=== PATIENT | female | born 1965 | race Caucasian/White ===

== ENCOUNTER 2018-07-26 15:44 | Emergency (ER) | payer OTHER, SELFPAY ==
[2018-07-26 15:49] VITALS: BP 157/90; PULSE 79; RESP 20; TEMP 36.2; O2SAT 96; BMI 29.6
--- NOTE | 2018-07-26 15:56 | DI.RAD.S_ITS ---
PROCEDURE: XR CHEST 1V INDICATIONS: chest pain TECHNIQUE: One view of the chest was acquired. COMPARISON: [facility], , CHEST 2 VIEW, 05/14/2012, 6:52. FINDINGS: Surgical changes and devices: None. Lungs and pleura: No pleural effusions or pneumothorax. Lungs are clear. Mediastinum: Mediastinal contours appear normal. Heart size is normal. Bones and chest wall: No suspicious bony lesions. Overlying soft tissues appear unremarkable. IMPRESSION: No acute pulmonary process. Dictated by: Alia Basurto M.D. on 07/26/2018 at 16:23 Approved by: Alia Basurto M.D. on 07/26/2018 at 16:23
[2018-07-26] MEDS: ASPIRIN 81 MG TAB 324 MG PO (15:58)
[2018-07-26 16:08] LABS: Add Manual Diff / Slide Review NO; Basophils Percent Auto 1.2 % (0-2); Eosinophils Percent Auto 1.4 % (2-4); Hematocrit 38.5 % (36-46); Hemoglobin 13.3 g/dL (12.0-16.0); Lymphocytes Percent Auto 31.7 % (25-40); Mean Corpuscular HGB Conc 34.5 % (30-36); Mean Corpuscular Volume 86.9 fL (80-100); Neutrophils Absolute Auto 3800 /uL (3000-5900); Neutrophils Percent Auto 58.7 % (50-75); Platelet Count 338 X10^3/uL (150-400); Red Blood Cell Count 4.43 X10^6/uL (4.0-5.2); White Blood Cell Count 6.6 X10^3/uL (4.5-11.0)
[2018-07-26 16:18] LABS: Prothrombin Time 10.4 SECONDS (10.1-12.7)
[2018-07-26 16:20] LABS: PTT Partial Thromboplastin Tim 30 SECONDS (26.4-36.2)
[2018-07-26 16:23] LABS: Alanine Aminotransferase 25 IU/L (9-52); Albumin 4.7 g/dL (3.5-5.0); Albumin Globulin Ratio 1.6 (1.0-2.8); Alkaline Phosphatase 79 U/L (38-126); Aspartate Aminotransferase 27 IU/L (14-36); Bilirubin Total 0.6 mg/dL (0.2-1.3); Blood Urea Nitrogen 18 mg/dL (7-17); Calcium 9.6 mg/dL (8.4-10.2); Carbon Dioxide 29 mmol/L (22-32); Chloride 104 mmol/L (98-107); Creatine Kinase 74 U/L (30-135); Estimated Glomerular Filt Rate 57.8 mL/min (>60); Globulin 2.9 g/dL (1.7-4.1); Glucose 105 mg/dL (70-100); HEMOLYSIS < 15 (0-50); Lipase 133 U/L (23-300); Potassium 3.8 mmol/L (3.4-5.1); Sodium 144 mmol/L (137-145); Total Protein 7.6 g/dL (6.3-8.2)
[2018-07-26 16:35] LABS: Troponin I < 0.012 ng/mL (0.01-0.034)
[2018-07-26 18:30] VITALS: BP 143/86; PULSE 73; RESP 18; O2SAT 98
--- NOTE | 2018-07-26 18:53 | ED.CHESTPAIN ---
HPI - Chest Pain General Chief Complaint: Chest Pain Stated Complaint: CHEST PAIN Time Seen by Provider: 07/26/18 18:53 Source: patient and family Mode of arrival: ambulatory Limitations: no limitations History of Present Illness HPI narrative: 52-year-old female, nonsmoker, otherwise healthy presents with a chief complaint of sharp and stabbing mid chest pain with radiation to her right jaw while at rest at 2:30 p.m. today while sitting in a chair. She states the intense pain did last all that long and was certainly long gone prior to her arrival. She denies any provocation, palliation or radiation of this pain. She states that she is very active regularly and has recently done significant work in her garden, moving so ill and other large heavy objects. She denies any history of blood clots, recent surgeries or history of cancer but has relatively frequent long-distance travel, most recently in April. complaint: chest pain Onset (ago): hour(s) Duration: now resolved Onset: during rest Pain location: substernal Severity: moderate Quality: sharp Pain radiation: RUE and jaw/teeth Relieving factors: nothing Exacerbating factors: nothing Context: recent travel Treatments prior to arrival chest pain: none Related Data On Oral Contraceptives: No Home Medications Medication Instructions Recorded Confirmed finasteride 5 mg PO DAILY 07/26/18 meloxicam 15 mg PO DAILY 07/26/18 07/26/18 Allergies Allergy/AdvReac Type Severity Reaction Status Date / Time morphine Allergy Intermediate ITCHY, Verified 07/26/18 15:54 HIVES Review of Systems Review of Systems All systems reviewed & are unremarkable except as noted in HPI and below Constitutional Denies chills, Denies fever(s), Denies lethargy and Denies weakness Eyes Denies change in vision, Denies eye discharge, Denies irritation and Denies loss of vision ENT Ears, Nose, Mouth, and Throat: Denies change in voice, Denies neck pain and Denies sore throat Cardiovascular Reports chest pain, Denies irregular heart rhythm, Denies lightheadedness, Denies palpitations, Denies dyspnea, Denies dyspnea on exertion and Denies orthopnea Respiratory Denies cough, Denies dyspnea, Denies dyspnea on exertion and Denies wheezing Gastrointestinal Gastrointestinal: Denies abdominal pain, Denies change in bowel habits, Denies diarrhea, Denies nausea and Denies vomiting Genitourinary Denies hematuria, Denies flank pain, Denies urinary incontinence and Denies urinary urgency Musculoskeletal Denies neck pain Integumentary/Breasts Denies pruritus, Denies erythema, Denies rash and Denies wounds Neurologic Denies confusion, Denies loss of vision and Denies weakness Psychiatric Denies anxiety, Denies confusion, Denies depression, Denies homicidal ideation and Denies suicidal ideation Endocrine Denies palpitations Hematologic/Lymphatic Denies easy bruising Allergic/Immunologic Denies wheezing [facility] Social History Smoking Status: Never smoker Exam Narrative Exam Narrative: 52-year-old female resting comfortably, in no obvious or significant distress. Friend at the bedside Initial Vital Signs Initial Vital Signs: Vital Signs Temperature 97.2 F L 07/26/18 15:49 Pulse Rate 79 07/26/18 15:49 Respiratory Rate 20 07/26/18 15:49 Blood Pressure 157/90 H 07/26/18 15:49 Pulse Oximetry 96 07/26/18 15:49 Const General: cooperative and well developed Nutritional Appearance: well nourished Orientation: alert, awake, oriented x3 and not confused HENNH Head: normocephalic and atraumatic Ears: external ears normal and TM's normal bilaterally Nose: external nose normal and No nasal discharge Face and sinus: sinuses nontender, face symmetric, no sinus tenderness and No dry mucous membranes Mouth: oral mucosae normal and moist mucous membranes Teeth and gingiva: dentition normal Throat: tonsils normal and uvula midline Eyes General: appearance normal, both eyes and all related structures Eyelids: eyelids normal Conjunctivae: conjunctivae normal Sclera: sclerae normal Pupils: PERRL EOM: EOM intact bilaterally Neck Neck: normal visual inspection, trachea midline, No lymphadenopathy, No midline deformity and No JVD Lymphatic: No lymphedema Chest Chest: normal inspection of the chest Resp Effort & Inspection: normal respiratory effort, able to speak in complete sentences, no respiratory distress and no use of accessory muscles Auscultation: clear to auscultation bilaterally, no rales, no rhonchi and no wheezes Cardio Rate: regular rate Rhythm: regular rhythm Heart Sounds: no click, no gallops, no murmurs and no rubs Pulses: normal peripheral pulses GI Inspection: non-distended Palpation: soft, no hepatosplenomegaly, No guarding, No pulsatile mass and No tender Auscultation: normal bowel sounds Back/Spine/Pelvis Back: No CVA tenderness Cervical Spine: cervical ROM normal and No pain with cervical ROM Thoracic/Lumbar Spine: thoracic and lumbar spine normal to inspection Skin General: no rashes or lesions noted, No jaundice and No petechiae Neuro General: alert, oriented x3, gait normal and no focal motor deficits Speech: speech normal Extrem General: full ROM, no clubbing, cyanosis or edema, no pedal edema and no calf tenderness Psych Appearance: well kempt Mental Status: mental status grossly normal Attitude: cooperative Thought Content: normal and suicidality Judgment: judgment good Scores HEART Score Heart Score history: Slightly Suspicious Heart Score EKG: Normal Heart Score Age: 45-64 years old Heart Score risk factors: No known risk factors Heart Score troponin: < or = to normal limit Heart Score Total: 1 Course Orders Ordered: ED Orders 07/26/18 15:55 Complete Blood Count AUTO DIFF Stat Comprehensive Metabolic Panel Stat Lipase Stat Partial Thromboplastin Time Stat Prothrombin Time INR Stat Troponin & CK Cardiac Panel Stat 07/26/18 15:56 XR chest 1V Stat EKG-12 Lead Stat 07/26/18 18:30 Troponin I Stat 07/26/18 19:14 CT angio chest PE protocol Stat Discontinued Medications Aspirin (Aspirin Chew) 324 mg PO NOW ONE Stop: 07/26/18 15:58 Last Admin: 07/26/18 15:58 Dose: 324 mg Vital Signs - 8 hr 07/26/18 15:49 07/26/18 18:30 07/26/18 19:00 Temperature 97.2 F L Pulse Rate 79 73 103 H Respiratory Rate 20 18 Blood Pressure 157/90 H Blood Pressure [Left Arm] 143/86 H 171/81 H Pulse Oximetry 96 98 99 07/26/18 21:55 Temperature 98.0 F Pulse Rate 66 Respiratory Rate 18 Blood Pressure 130/76 Blood Pressure [Left Arm] Pulse Oximetry 100 MDM - Chest Pain Differential Diagnosis Likely pneumothorax, stable angina, unstable angina pectoris, atypical chest pain, st elevation myocardial infarction, costochondritis, chest pain and biliary colic Medical Records Data Attestation: I reviewed the patient's medical records. Lab Data Attestation: I reviewed the patient's lab results. Result diagrams: 07/26/18 15:55 07/26/18 15:55 Lab Results 07/26/18 07/26/18 07/26/18 Range/Units 15:55 15:55 15:55 WBC 6.6 (4.5-11.0) X10^3/uL RBC 4.43 (4.0-5.2) X10^6/uL Hgb 13.3 (12.0-16.0) g/dL Hct 38.5 (36-46) % MCV 86.9 (80-100) fL MCH 30.0 (26-34) PG MCHC 34.5 (30-36) % RDW 13.0 (11.6-14.8) % Plt Count 338 (150-400) X10^3/uL Neut % (Auto) 58.7 (50-75) % Lymph % (Auto) 31.7 (25-40) % [place] % (Auto) 7.0 (3-14) % Eos % (Auto) 1.4 L (2-4) % Baso % (Auto) 1.2 (0-2) % Neut # (Auto) 3800 (0712-1635) /uL PT 10.4 (10.1-12.7) SECONDS INR 1.0 (0.9-1.3) APTT 30 (26.4-36.2) SECONDS Sodium 144 (137-145) mmol/L Potassium 3.8 (3.4-5.1) mmol/L Chloride 104 (98-107) mmol/L Carbon Dioxide 29 (22-32) mmol/L BUN 18 H (7-17) mg/dL Creatinine 1.00 (0.52-1.04) mg/dL Estimated GFR 57.8 L (>60) mL/min BUN/Creatinine Ratio 18.0 (6-22) Glucose 105 H (70-100) mg/dL Calcium 9.6 (8.4-10.2) mg/dL Total Bilirubin 0.6 (0.2-1.3) mg/dL AST 27 (14-36) IU/L ALT 25 (9-52) IU/L Alkaline Phosphatase 79 (38-126) U/L Total Creatine Kinase 74 (30-135) U/L CK-MB (CK-2) TNP CK-MB (CK-2) Rel Index TNP Troponin I < 0.012 (0.01-0.034) ng/mL Total Protein 7.6 (6.3-8.2) g/dL Albumin 4.7 (3.5-5.0) g/dL Globulin 2.9 (1.7-4.1) g/dL Albumin/Globulin Ratio 1.6 (1.0-2.8) Lipase 133 (23-300) U/L 07/26/18 Range/Units 18:30 WBC (4.5-11.0) X10^3/uL RBC (4.0-5.2) X10^6/uL Hgb (12.0-16.0) g/dL Hct (36-46) % MCV (80-100) fL MCH (26-34) PG MCHC (30-36) % RDW (11.6-14.8) % Plt Count (150-400) X10^3/uL Neut % (Auto) (50-75) % Lymph % (Auto) (25-40) % [place] % (Auto) (3-14) % Eos % (Auto) (2-4) % Baso % (Auto) (0-2) % Neut # (Auto) (9527-3424) /uL PT (10.1-12.7) SECONDS INR (0.9-1.3) APTT (26.4-36.2) SECONDS Sodium (137-145) mmol/L Potassium (3.4-5.1) mmol/L Chloride (98-107) mmol/L Carbon Dioxide (22-32) mmol/L BUN (7-17) mg/dL Creatinine (0.52-1.04) mg/dL Estimated GFR (>60) mL/min BUN/Creatinine Ratio (6-22) Glucose (70-100) mg/dL Calcium (8.4-10.2) mg/dL Total Bilirubin (0.2-1.3) mg/dL AST (14-36) IU/L ALT (9-52) IU/L Alkaline Phosphatase (38-126) U/L Total Creatine Kinase (30-135) U/L CK-MB (CK-2) CK-MB (CK-2) Rel Index Troponin I < 0.012 (0.01-0.034) ng/mL Total Protein (6.3-8.2) g/dL Albumin (3.5-5.0) g/dL Globulin (1.7-4.1) g/dL Albumin/Globulin Ratio (1.0-2.8) Lipase (23-300) U/L Imaging Data CT scan - chest: Radiologist's impression: atient: Shazia Vides TMR#: [id number] : 1965Acct:[id number] Age/Sex: 52 / FDate of Service: 07/26/18 Loc: ED Accession Number: [id number] Procedure: CT angio chest PE protocol Ordering Provider: Roque Parks D.O. PROCEDURE: CT ANGIO CHEST PE PROTOCOL INDICATIONS: Chest pain, radiation to neck and back, travel to [place] TECHNIQUE: After the administration of intravenous contrast, 2 mm thick sections acquired from the pulmonary apices to the posterior costophrenic angles. 3-dimensional maximum intensity projection (MIP) coronal and sagittal reformats were then acquired through the thorax. For radiation dose reduction, the following was used: automated exposure control, adjustment of mA and/or kV according to patient size. COMPARISON: [facility], CT, KIDNEY/ URETER/BLADDER, 03/21/2015, 3:17. FINDINGS: Image quality: Excellent. Pulmonary arteries: Pulmonary arteries are normal in size, and demonstrate no intraluminal filling defects to suggest central pulmonary embolism. Lungs and pleura: There is right dependent and lingular atelectasis. No pleural effusions or pneumothorax. Central and peripheral airways are patent. Mediastinum: Heart size is normal, without pericardial effusion. No mediastinal or hilar adenopathy. Thoracic aorta is normal in caliber and enhancement. There is a small hiatal hernia. Bones and chest wall: No suspicious bony lesions. Mild multilevel degenerative changes of the spine. Ribs and thoracic spine appear intact throughout. Thyroid gland is unremarkable. No axillary or supraclavicular adenopathy. Abdomen: Visualized upper abdominal solid organs appear normal in the early arterial phase of enhancement. IMPRESSION: No central pulmonary emboli. Dictated by: Steve Celeste M.D. on 07/26/2018 at 20:50 Approved by: Steve Celeste M.D. on 07/26/2018 at 21:01 ECG Data Attestation: I personally reviewed and interpreted this ECG as follows: Prior ECG tracings: not available for review Interpretation: normal sinus rhythm with no ischemic changes ST segment or T-wave changes. MDM Narrative Medical decision making narrative: Low risk patient presents with a heart score of 1 and pain at resolved. She had multiple troponins by 3 hr, the 2nd being 6 hr after onset of symptoms which were unremarkable. CT of the chest ordered to rule out pulmonary embolism given long distance travel and no PE noted. Patient can safely be discharged for outpatient follow up. Discharge Plan Departure Patient Disposition: Home Clinical Impression: Atypical chest pain Discharge Date/Time: 07/26/18 21:56 Interventions: ED Discharge Assessment Last Done: 07/26/18 21:55 Instructions: DI for Atypical Chest Pain Activity Restrictions/Additional Instructions: *You have been diagnosed with [ atypical chest pain ] *What to do: * continued to take medications as directed *Follow up with your primary care provider in 2-3 days, call for an appointment. Let them know you were seen in the Emergency Department and that we ask that you be seen in follow up *Return to ER if you should have any new, worsening or concerning symptoms Prescriptions: No Action meloxicam 15 mg tablet 15 mg PO DAILY RF: 0 finasteride 5 mg tablet 5 mg PO DAILY RF: 0 Referrals: Dayton Collado MD [Primary Care Provider] -
[2018-07-26 18:55] LABS: Troponin I < 0.012 ng/mL (0.01-0.034)
[2018-07-26 19:00] VITALS: BP 171/81; PULSE 103; O2SAT 99
--- NOTE | 2018-07-26 19:14 | DI.CT.S_ITS ---
PROCEDURE: CT ANGIO CHEST PE PROTOCOL INDICATIONS: Chest pain, radiation to neck and back, travel to [place] TECHNIQUE: After the administration of intravenous contrast, 2 mm thick sections acquired from the pulmonary apices to the posterior costophrenic angles. 3-dimensional maximum intensity projection (MIP) coronal and sagittal reformats were then acquired through the thorax. For radiation dose reduction, the following was used: automated exposure control, adjustment of mA and/or kV according to patient size. COMPARISON: [facility], CT, KIDNEY/ URETER/BLADDER, 03/21/2015, 3:17. FINDINGS: Image quality: Excellent. Pulmonary arteries: Pulmonary arteries are normal in size, and demonstrate no intraluminal filling defects to suggest central pulmonary embolism. Lungs and pleura: There is right dependent and lingular atelectasis. No pleural effusions or pneumothorax. Central and peripheral airways are patent. Mediastinum: Heart size is normal, without pericardial effusion. No mediastinal or hilar adenopathy. Thoracic aorta is normal in caliber and enhancement. There is a small hiatal hernia. Bones and chest wall: No suspicious bony lesions. Mild multilevel degenerative changes of the spine. Ribs and thoracic spine appear intact throughout. Thyroid gland is unremarkable. No axillary or supraclavicular adenopathy. Abdomen: Visualized upper abdominal solid organs appear normal in the early arterial phase of enhancement. IMPRESSION: No central pulmonary emboli. Dictated by: Steve Celeste M.D. on 07/26/2018 at 20:50 Approved by: Steve Celeste M.D. on 07/26/2018 at 21:01
[2018-07-26 21:55] VITALS: BP 130/76; PULSE 66; RESP 18; TEMP 36.7; O2SAT 100
== END 2018-07-26 21:56 | disposition home or self-care (01) ==
PROVIDERS: Emergency Medicine; Emergency Provider Emergency Medicine; Family Provider Family Medicine; PCP Family Medicine
DX: R07.89 Other chest pain (principal)
CPT/HCPCS: 36415; 36591; 71045; 71275; 80053; 82550; 83690; 84484; 85025; 85610; 85730; 93005; 99283; 99285; Q9967

== ENCOUNTER → 2018-10-18 11:18 | Outpatient (CLI) | payer OTHER, SELFPAY ==
--- NOTE | 2018-10-18 | DI.MG.S_ITS ---
BILATERAL DIGITAL SCREENING MAMMOGRAM 3D/2D WITH CAD: 10/18/2018 CLINICAL: Routine screening. Comparison is made to exams dated: 11/16/2014 mammogram, 06/28/2010 mammogram, and 08/12/2004 mammogram - [facility]. The tissue of both breasts is heterogeneously dense. This may lower the sensitivity of mammography. Current study was also evaluated with a Computer Aided Detection (CAD) system. No significant masses, calcifications, or other findings are seen in either breast. There has been no significant interval change. IMPRESSION: NEGATIVE There is no mammographic evidence of malignancy. A 1 year screening mammogram is recommended. This exam was interpreted at Station ID: [id number]. NOTE: For mammograms, a report in lay terms will be sent to the patient. Approximately 15% of breast malignancies will not be visualized mammographically. In the management of a palpable breast mass, a negative mammogram must not discourage biopsy of a clinically suspicious lesion. Electronically Signed By: Tiffanie valentin/janes:10/18/2018 13:04:34 letter sent: Normal Exam ACR BI-RADS Category 1: Negative 3341F
== END ==
PROVIDERS: Family Provider Family Medicine; PCP Family Medicine; Visit Provider Family Medicine
DX: Z12.31 Encounter for screening mammogram for malignant neoplasm of breast (principal)
CPT/HCPCS: 77063; 77067

== ENCOUNTER 2020-07-26 18:47 | Emergency (ER) | payer OTHER, SELFPAY ==
[2020-07-26 19:37] VITALS: BP 131/72; PULSE 85; RESP 16; TEMP 36.2; O2SAT 96; BMI 29.6
[2020-07-26 19:56] LABS: Bacteria Urine None Seen
--- NOTE | 2020-07-26 20:13 | ED_ITS ---
HPI - General Adult General Chief complaint: Urogenital-Female Stated complaint: Kidney stones or Kidney Somethin' Time Seen by Provider: 07/26/20 18:52 Source: patient Mode of arrival: Wheelchair Limitations: no limitations History of Present Illness HPI narrative: 54-year-old here for evaluation of right-sided flank pain and concern for potential kidney stone or kidney infection. States she has had kidney stones in the past but it was many years ago. Started having right-sided discomfort which felt very similar to a prior stone. She is also having some urinary dysuria and frequency and was concerned for infection. No fevers. Related Data Home Medications Medication Instructions Recorded Confirmed finasteride 5 mg PO DAILY 07/26/18 meloxicam 15 mg PO DAILY 07/26/18 07/26/18 Allergies Allergy/AdvReac Type Severity Reaction Status Date / Time morphine Allergy Intermediate ITCHY, Verified 07/26/18 15:54 HIVES Review of Systems Constitutional Constitutional: Denies fever(s) Cardiovascular Cardiovascular: Denies chest pain and Denies dyspnea Respiratory Respiratory: Denies dyspnea Gastrointestinal Gastrointestinal: Denies change in bowel habits, Denies nausea and Denies vomiting Genitourinary Genitourinary: Reports dysuria and Reports urinary urgency Genitourinary: Reports dysuria and Reports urinary urgency Musculoskeletal Musculoskeletal: Denies myalgias Integumentary/Breasts Skin/Breast: Denies rash Neurologic Neurologic: Denies behavioral changes Psychiatric Psychiatric: Denies behavioral changes Hematologic/Lymphatic Hematologic/Lymphatic: Denies easy bleeding and Denies easy bruising Allergic/Immunologic Allergic/Immunologic: Denies urticaria Patient History Medical History Kidney stones (Acute) Social History Smoking Status: Never smoker Smoking Status: Never smoker alcohol intake frequency: a few times a week Substance Use Type: does not use Exam Initial Vital Signs Initial Vital Signs: Vital Signs Temperature 97.2 F L 07/26/20 19:37 Pulse Rate 85 07/26/20 19:37 Respiratory Rate 16 07/26/20 19:37 Blood Pressure 131/72 07/26/20 19:37 Pulse Oximetry 96 07/26/20 19:37 Const General: cooperative and comfortable Limitations: mental status not altered HENMT Head: normal to inspection and normocephalic Resp Effort & Inspection: normal respiratory effort Cardio Rate: regular rate GI Inspection: non-distended Palpation: No tender Back/Spine/Pelvis Back: No CVA tenderness Skin Lesions: no lesions Rashes: no rashes Neuro General: patient alert and patient awake Cognition: normal cognition Speech: speech normal Extrem General: normal to inspection and capillary refill normal Psych Appearance: grossly normal and well kempt Course Orders Ordered: ED Orders 07/26/20 19:40 Urine Microscopic Stat 07/26/20 20:10 Basic Metabolic Panel Stat 07/26/20 21:13 Complete Blood Count AUTO DIFF Stat Discontinued Medications Ketorolac Tromethamine (Toradol) 30 mg IV NOW ONE Stop: 07/26/20 21:26 Last Admin: 07/26/20 21:32 Dose: 30 mg Documented by: XIMENA Vital Signs Vital signs: Vital Signs - 8 hr 07/26/20 19:37 07/26/20 20:50 07/26/20 21:00 Temperature 97.2 F L Pulse Rate 85 84 80 Respiratory Rate 16 Blood Pressure 131/72 136/67 132/66 Pulse Oximetry 96 94 100 07/26/20 21:30 07/26/20 21:55 Temperature Pulse Rate 83 85 Respiratory Rate 12 Blood Pressure 135/69 135/69 Pulse Oximetry 99 97 Medical Decision Making Lab Data Lab results reviewed: Yes I reviewed the patient's lab results. Result diagrams: 07/26/20 21:13 07/26/20 20:10 Labs: Lab Results 07/26/20 07/26/20 07/26/20 Range/Units 19:40 20:10 21:13 WBC 11.5 H (4.5-11.0) X10^3/uL RBC 4.55 (4.0-5.2) X10^6/uL Hgb 13.5 (12.0-16.0) g/dL Hct 40.6 (36-46) % MCV 89.2 (80-100) fL MCH 29.6 (26-34) PG MCHC 33.2 (30-36) % RDW 12.4 (11.6-14.8) % Plt Count 328 (150-400) X10^3/uL Neut % (Auto) 82.1 H (50-75) % Lymph % (Auto) 11.5 L (25-40) % [place] % (Auto) 5.3 (3-14) % Eos % (Auto) 0.4 L (2-4) % Baso % (Auto) 0.7 (0-2) % Neut # (Auto) 9400 H (3303-9119) /uL Lymph # (Auto) 1300 (8594-4801) /uL [place] # (Auto) 600 (0-900) /uL Eos # (Auto) 100 (0-450) /uL Baso # (Auto) 100 (0-100) /uL Sodium 142 (137-145) mmol/L Potassium 3.6 (3.4-5.1) mmol/L Chloride 103 (98-107) mmol/L Carbon Dioxide 31 (22-32) mmol/L BUN 12 (7-17) mg/dL Creatinine 0.82 (0.52-1.04) mg/dL Estimated GFR > 60.0 (>60) mL/min BUN/Creatinine Ratio 14.6 (6-22) Glucose 115 H (70-100) mg/dL Calcium 9.7 (8.4-10.2) mg/dL Urine RBC 1-5/hpf (0-5/HPF) Urine WBC 0-1/hpf (0-5/HPF) Ur Squamous Epith Cells 0-1 /hpf (0-5/HPF) Amorphous Sediment 2+ Urine Bacteria None seen (None) Ur Culture Indicated? Cult not indicated Urine Dip Bedside Urine Glucose Negative Bedside Urine Bilirubin - Negative Bedside Urine Ketone - Negative Urine Specific [place] 1.010 Bedside Urine Occult Blood ++ Bedside Urine pH 6.5 Bedside Urine Protein - Negative Bedside Urine Urobilinogen - Negative Bedside Urine Nitrite - Negative Bedside Urine Leukocytes - Negative Esterase Point of care testing: Urine Dip Bedside Urine Glucose Negative Bedside Urine Bilirubin - Negative Bedside Urine Ketone - Negative Urine Specific [place] 1.010 Bedside Urine Occult Blood ++ Bedside Urine pH 6.5 Bedside Urine Protein - Negative Bedside Urine Urobilinogen - Negative Bedside Urine Nitrite - Negative Bedside Urine Leukocytes - Negative Esterase MDM Narrative Medical decision making narrative: Kidney functions unremarkable, urinalysis has blood but no other signs of infection. Patient actually states that her discomfort that she had earlier has greatly improved. She is convinced that the right-sided discomfort that brought her to the emergency department was a kidney stone because it felt like her prior episodes of this. She has passed all of her prior kidney stones on her own. I feel that we can hold on a CT scan for now. Patient stated that taking opioid pain medication causes her severe constipation so she would like to avoid all of these medications if possible. She was given Toradol. She is going to take ibuprofen at home if needed. She was given return precautions and follow-up instructions. She expressed understanding and agreement. Discharge Plan Departure Patient Disposition: Home Clinical Impression: Acute right flank pain, Renal colic on right side Discharge Date/Time: 07/26/20 21:58 Instructions: Kidney Stones -- Adult Activity Restrictions/Additional Instructions: You can take 2 regular strength Tylenol/acetaminophen every 4 hours or 600 mg of Motrin/ibuprofen every 8 hours as needed for discomfort. Contact your primary provider for follow-up. Return to the emergency department for any fevers, inability to urinate, symptoms are not controlled or any other new or worsening symptoms. Prescriptions: No Action meloxicam 15 mg tablet 15 mg PO DAILY RF: 0 finasteride 5 mg tablet 5 mg PO DAILY RF: 0 Referrals: Dayton Collado MD [Primary Care Provider] -
[2020-07-26 20:28] LABS: Amorphous Sediment Urine 2+; Culture Indicated Urine Cult Not Indicated; RBC Urine 1-5/HPF (0-5/HPF); Squamous Epithelial Cell Urine 0-1 /HPF (0-5/HPF); WBC Urine 0-1/HPF (0-5/HPF)
[2020-07-26 20:34] LABS: BUN Creatinine Ratio 14.6 (6-22); Blood Urea Nitrogen 12 mg/dL (7-17); Calcium 9.7 mg/dL (8.4-10.2); Carbon Dioxide 31 mmol/L (22-32); Chloride 103 mmol/L (98-107); Estimated Glomerular Filt Rate > 60.0 mL/min (>60); Glucose 115 mg/dL (70-100); HEMOLYSIS < 15 (0-50); Potassium 3.6 mmol/L (3.4-5.1); Sodium 142 mmol/L (137-145)
[2020-07-26 20:50] VITALS: BP 136/67; PULSE 84; O2SAT 94
[2020-07-26 21:00] VITALS: BP 132/66; PULSE 80; O2SAT 100
[2020-07-26 21:20] LABS: Add Manual Diff / Slide Review NO; Basophils Absolute Auto 100 /uL (0-100); Basophils Percent Auto 0.7 % (0-2); Eosinophils Absolute Auto 100 /uL (0-450); Eosinophils Percent Auto 0.4 % (2-4); Hematocrit 40.6 % (36-46); Hemoglobin 13.5 g/dL (12.0-16.0); Lymphocytes Absolute Auto 1300 /uL (1100-4500); Lymphocytes Percent Auto 11.5 % (25-40); Mean Corpuscular HGB Conc 33.2 % (30-36); Mean Corpuscular Hemoglobin 29.6 PG (26-34); Mean Corpuscular Volume 89.2 fL (80-100); Monocytes Absolute Auto 600 /uL (0-900); Monocytes Percent Auto 5.3 % (3-14); Neutrophils Absolute Auto 9400 /uL (1500-7000); Neutrophils Percent Auto 82.1 % (50-75); Platelet Count 328 X10^3/uL (150-400); Red Blood Cell Count 4.55 X10^6/uL (4.0-5.2); Red Cell Distribution Width 12.4 % (11.6-14.8); White Blood Cell Count 11.5 X10^3/uL (4.5-11.0)
[2020-07-26 21:30] VITALS: BP 135/69; PULSE 83; O2SAT 99
[2020-07-26] MEDS: KETOROLAC 60 MG/2 ML VIAL 30 MG IV (21:32)
[2020-07-26 21:55] VITALS: BP 135/69; PULSE 85; RESP 12; O2SAT 97
== END 2020-07-26 21:58 | disposition home or self-care (01) ==
PROVIDERS: Emergency Provider Emergency Medicine; Family Provider Family Medicine; PCP Family Medicine
DX: N23 Unspecified renal colic (principal); M54.9 Dorsalgia, unspecified
CPT/HCPCS: 36415; 80048; 81003; 81015; 85025; 96374; 99284; J1885

== ENCOUNTER → 2021-06-18 12:43 | Outpatient (CLI) | payer OTHER, SELFPAY ==
--- NOTE | 2021-06-18 12:44 | DI.MG.S_ITS ---
BILATERAL DIGITAL SCREENING MAMMOGRAM 3D/2D WITH CAD: 06/18/2021 CLINICAL: Routine screening. Comparison is made to exams dated: 10/18/2018 mammogram, 11/16/2014 mammogram, and 06/28/2010 mammogram - [facility]. There are scattered fibroglandular elements in both breasts. Current study was also evaluated with a Computer Aided Detection (CAD) system. No significant masses, calcifications, or other findings are seen in either breast. There has been no significant interval change. IMPRESSION: NEGATIVE There is no mammographic evidence of malignancy. A 1 year screening mammogram is recommended. This exam was interpreted at Station ID: [id number]. NOTE: For mammograms, a report in lay terms will be sent to the patient. Approximately 15% of breast malignancies will not be visualized mammographically. In the management of a palpable breast mass, a negative mammogram must not discourage biopsy of a clinically suspicious lesion. Electronically Signed By: Abbey dorsey/janes:06/20/2021 10:01:43 letter sent: Normal Exam ACR BI-RADS Category 1: Negative 3341F
== END ==
PROVIDERS: Family Provider Family Medicine; PCP Family Medicine; Referring Provider Family Medicine; Visit Provider Family Medicine
DX: Z12.31 Encounter for screening mammogram for malignant neoplasm of breast (principal)
CPT/HCPCS: 77063; 77067

== ENCOUNTER → 2022-05-16 07:05 | Outpatient (CLI) | payer OTHER, SELFPAY ==
[2022-05-16 11:53] LABS: COVID19 -Nasal RAPID Negative (Negative)
== END ==
PROVIDERS: Family Provider Family Medicine; PCP Family Medicine; Visit Provider Surgery
DX: Z01.812 Encounter for preprocedural laboratory examination (principal); Z20.822 Contact with and (suspected) exposure to COVID-19
CPT/HCPCS: 87635; C9803

== ENCOUNTER 2022-05-17 07:43 | Day surgery (SDC) | payer OTHER, SELFPAY ==
[2022-05-17] VITALS (7 sets, daily range): BP systolic 108–134; BP diastolic 53–88; PULSE 58–78; RESP 12–16; TEMP 36–36.6; O2SAT 97–99; BMI 28.8
[2022-05-17] MEDS: LACTATED RINGERS 1,000 ML 42 ML IV (08:07)
--- NOTE | 2022-05-17 08:13 | PM.HP.1 ---
History of Present Illness History of Present Illness Date Patient Seen: 05/17/22 Time Patient Seen: 08:13 Chief complaint: SCREENING COLONOSCOPY Narrative: Colon cancer screening. No significant family history. No symptoms Patient History Medical History Kidney stones Family & Social History Social History: household members friend(s) Tobacco & Substance use: Smoking Status Never smoker alcohol intake current alcohol intake frequency 0-2 drinks per day Substance Use Type does not use Meds Home Medications and Allergies Home Medications Medication Instructions Recorded Confirmed Type peg 3350-electrolytes 236 240 ml PO Q10M #4,000 mL 05/10/22 Rx gram-22.74 gram-6.74 gram-5.86 gram solution (Golytely) hydrochlorothiazide 12.5 mg tablet tab 05/17/22 History Allergies Allergy/AdvReac Type Severity Reaction Status Date / Time morphine Allergy Intermediate ITCHY, Verified 05/17/22 08:03 HIVES Review of Systems Review of Systems ROS: Yes All systems reviewed with the patient and are negative except as otherwise documented Exam Vital Signs (past 8 hours): - 05/17/22 07:58 Temperature 96.8 F L Pulse Rate 78 Respiratory Rate 15 Blood Pressure 134/88 Pulse Oximetry 99 Oxygen Delivery Method Room Air Oxygen Delivery Method Room Air Const General: cooperative and healthy appearing Nutritional Appearance: well nourished [facility] Head: normocephalic and atraumatic Eyes General: appearance normal, both eyes and all related structures Sclera: sclerae normal Neck Neck: normal visual inspection and trachea midline Chest Chest: normal inspection of the chest Resp Effort & Inspection: normal respiratory effort and able to speak in complete sentences Auscultation: clear to auscultation bilaterally Cardio Rate: regular rate Rhythm: regular rhythm GI Inspection: normal to inspection Palpation: soft Skin General: atrophy and dry skin Neuro General: patient alert, patient awake and patient oriented x3 Cognition: normal cognition Extrem General: full ROM Psych Appearance: grossly normal Affect: normal affect Judgment: judgment good Assessment & Plan Assessment & Plan narrative: Colon cancer screening using colonoscopy and moderate sedation COVID-19 COVID-19 status: Negative Time Spent With Patient Time with patient: less than 30 minutes Critical Care time: I spent a total of [] minutes of critical care time on this patient's care today; this time is exclusive of procedural time.
[2022-05-17] MEDS: ONDANSETRON 4 MG/2 ML INJ IV (08:35)
[2022-05-17] MEDS: fentaNYL 250 MCG/5 ML INJ 150 MCG IV (08:40)
[2022-05-17] MEDS: MIDAZOLAM 5 MG/5 ML VIAL 7 MG IV (08:40)
--- NOTE | 2022-05-17 08:48 | P.OP.COLON_ITS ---
Operative Date/Time/Diagnoses Date of procedure: 05/17/22 Time of procedure: 08:48 Pre-op diagnosis: Colon cancer screening Post-op diagnosis: same Procedure & Clinicians Study performed: Colonoscopy with moderate sedation Same procedure as scheduled: Yes Indications: Colon cancer screening Surgeon: Lucia Bowden Procedure Notes SCOAP/Timeout: Done Procedure in detail: Preop diagnosis: Colon cancer screening Postop diagnosis: Same Operative procedure: Colonoscopy with moderate sedation Findings: Normal colon, no polyps, no diverticulosis. Procedure: Patient placed in lateral position. Rectal exam performed showing increased tone but no masses. Scope was inserted into the rectum and advanced to ileocecal valve with minimal difficulty. Insufflation extraction of the scope had the above findings. Retroflexed in the rectum as well as the cecum were performed as well. Impression: No polyps, no diverticulosis. Plan: Repeat colonoscopy in 10 years unless otherwise indicated by change in c linical condition Scope withdrawal time: done Sedation minutes: 16 Specimen(s): none sent Complications: none Impression: Normal colon Post-procedure Recommendations: Colonoscopy in 10 years Follow up: as needed Disposition: PACU
== END 2022-05-17 09:40 | disposition home or self-care (01) ==
PROVIDERS: Family Provider Family Medicine; PCP Family Medicine; Referring Provider Surgery; Visit Provider Surgery
PROC: 0DJD8ZZ Inspection of Lower Intestinal Tract, Via Natural or Artificial Opening Endoscopic (ICD-10-PCS; CPT 45378; principal; 2022-05-17 08:45)
DX: Z12.11 Encounter for screening for malignant neoplasm of colon (principal)
CPT/HCPCS: G0121; 99152; J2250; J2405; J3010

== ENCOUNTER → 2022-06-19 11:34 | Outpatient (CLI) | payer OTHER, SELFPAY ==
--- NOTE | 2022-06-19 | DI.RAD.S_ITS ---
PROCEDURE: XR KNEE LT 3V INDICATIONS: LEFT KNEE PAIN TECHNIQUE: 3 views of the knee were acquired. COMPARISON: None. FINDINGS: Bones: No fractures or dislocations. Mild medial and patellofemoral compartment narrowing and spurring. Small nonaggressive appearing lucent focus at the medial femoral condyle with a narrow zone of transition, nonspecific. Soft tissues: No joint effusion. No suspicious soft tissue calcifications. IMPRESSION: Mild degenerative changes of the knee. Dictated by: Robi Siddiqui M.D. on 06/19/2022 at 20:54 Approved by: Robi Siddiqui M.D. on 06/19/2022 at 20:59
== END ==
PROVIDERS: Family Provider Family Medicine; PCP Family Medicine; Referring Provider Family Medicine; Visit Provider Family Medicine
DX: M25.562 Pain in left knee (principal)
CPT/HCPCS: 73562

== ENCOUNTER → 2022-12-01 07:41 | Outpatient (CLI) | payer OTHER, SELFPAY ==
--- NOTE | 2022-12-01 | DI.NM.S_ITS ---
PROCEDURE: NM EXERCISE TREADMILL NON NUC COMPARISON: None. INDICATIONS: Other chest pain. FINDINGS: Rest ECG sinus rhythm. Tino protocol 9: 00, maximum heart rate 168 bpm (104% peak predicted), maximum blood pressure 172/90, 10.1 METS, CATHY -29%. Stress ECG sinus tachycardia, J-point depression with quick upsloping ST segments, no ectopy or arrhythmia. IMPRESSION: Low risk study. No evidence of exercise-induced ischemia or arrhythmia. Normal hemodynamic response to exercise. Very good exercise capacity. Dictated by: Marysol Corado D.O. on 12/01/2022 at 16:50 Approved by: Marysol Corado D.O. on 12/01/2022 at 16:53
== END ==
PROVIDERS: Family Provider Family Medicine; PCP Family Medicine; Referring Provider Family Medicine; Visit Provider Family Medicine
DX: R07.89 Other chest pain (principal)
CPT/HCPCS: 93017

== ENCOUNTER → 2023-08-31 07:45 | Outpatient (CLI) | payer OTHER, SELFPAY ==
--- NOTE | 2023-08-31 | DI.MG.S_ITS ---
BILATERAL DIGITAL SCREENING MAMMOGRAM 3D/2D WITH CAD: 08/31/2023 CLINICAL: Routine screening. Comparison is made to exams dated: 06/18/2021 mammogram, 10/18/2018 mammogram, and 11/16/2014 mammogram - [facility]. There are scattered areas of fibroglandular density in both breasts (category b / 25%-50% glandular tissue). Current study was also evaluated with a Computer Aided Detection (CAD) system. No significant masses, calcifications, or other findings are seen in either breast. There has been no significant interval change. IMPRESSION: NEGATIVE There is no mammographic evidence of malignancy. A 1 year screening mammogram is recommended. Based on the Tyrer Cuzick model (a risk assessment model) the patient's lifetime risk is 8.9% and her 10 year risk is 3.4%. According to the ACR, ACS, and NCCN guidelines, an annual breast MRI exam along with mammogram is recommended if the patient's lifetime risk is 20% or greater. This exam was interpreted at Station ID: [id number]. NOTE: For mammograms, a report in lay terms will be sent to the patient. Approximately 15% of breast malignancies will not be visualized mammographically. In the management of a palpable breast mass, a negative mammogram must not discourage biopsy of a clinically suspicious lesion. Electronically Signed By: Jair joe/janes:08/31/2023 08:20:13 letter sent: Normal Exam ACR BI-RADS Category 1: Negative [id number]
== END ==
PROVIDERS: Family Provider Family Medicine; PCP Family Medicine; Referring Provider Family Medicine; Visit Provider Family Medicine
DX: Z12.31 Encounter for screening mammogram for malignant neoplasm of breast (principal)
CPT/HCPCS: 77063; 77067

== ENCOUNTER → 2025-01-13 13:16 | Outpatient (CLI) | payer OTHER, SELFPAY ==
--- NOTE | 2025-01-13 13:19 | DI.US.S_ITS ---
PROCEDURE: US HERNIA INDICATIONS: POSTOPERATIVE HERNIA TECHNIQUE: Real-time focused scanning was performed of the inguinal region, with image documentation. COMPARISON: None. FINDINGS: Left inguinal hernia with defect measuring 0.9 x 2.1 cm with contents measuring 4.0 x 1.4 x 3.2 cm. This is not completely reducible. Appears to only contain fat. Right inguinal hernia with contents measuring 3.3 x 1.4 x 2.3 cm. The defect is not well seen. This hernia appears only contain fat and is reducible. IMPRESSION: Bilateral fat containing inguinal hernias, reducible on the right and not completely reducible on the left. Dictated by: Wilber Brody M.D. on 01/13/2025 at 17:57 Approved by: Wilber Brody M.D. on 01/13/2025 at 17:59
== END ==
LOC: US 13:18
PROVIDERS: Family Provider Family Medicine; PCP Family Medicine; Referring Provider Family Medicine; Visit Provider Family Medicine
DX: K43.2 Incisional hernia without obstruction or gangrene (principal); K40.30 Unilateral inguinal hernia, with obstruction, without gangrene, not specified as recurrent; K40.90 Unilateral inguinal hernia, without obstruction or gangrene, not specified as recurrent
CPT/HCPCS: 76705

== ENCOUNTER 2025-07-01 16:43 | Inpatient (IN) | payer OTHER, SELFPAY ==
[2025-07-01 17:10] VITALS: BP 165/91; PULSE 96; RESP 15; TEMP 36.7; O2SAT 99
[2025-07-01 17:58] LABS: Add Manual Diff / Slide Review NO; Hematocrit 38.3 % (36-46); Hemoglobin 12.8 g/dL (12.0-16.0); Lymphocytes Absolute Auto 1200 /uL (1100-4500); Mean Corpuscular HGB Conc 33.4 % (30-36); Mean Corpuscular Hemoglobin 30.5 PG (26-34); Mean Corpuscular Volume 91.4 fL (80-100); Platelet Count 250 X10^3/uL (150-400)
[2025-07-01 18:13] LABS: Blood Urea Nitrogen 20 mg/dL (7-17); Calcium 9.5 mg/dL (8.4-10.2); Carbon Dioxide 28 mmol/L (22-32); Chloride 105 mmol/L (98-107); Estimated Glomerular Filt Rate > 60 mL/min (>60); Glucose 92 mg/dL (70-99); HEMOLYSIS 48 (0-50); Potassium 4.2 mmol/L (3.4-5.1); Sodium 140 mmol/L (137-145)
[2025-07-01] MEDS: VANCOMYCIN 1,250 MG/250 ML PIGGYBACK 250 MG IV (18:28)
--- NOTE | 2025-07-01 18:37 | PM.HP.1 ---
History of Present Illness History of Present Illness Date Patient Seen: 07/01/25 Time Patient Seen: 18:37 Date of Onset of Symptoms: 06/27/25 Chief complaint: Rt hand cellulitis/ abcess Narrative: Patient is a 59-year-old female well known to me who presents for pain swelling in her left arm. Apparently on Sunday she was out in the forced lens running and fell landing on her right arm tearing open her thenar eminence she cleaned it and felt like things were going okay Sunday she had it looked at the urgent care they irrigated it cleaned it aggressively closed it with glue and Steri-Strips. She started having more pain on Sunday when she presented to her office she had swelling and redness on her arm she had no fevers or other changes. She was placed on Augmentin and really nothing to culture at that time. She was seen today because of increasing swelling and redness going or upper arm. Feels like she has a fever. Increasing pain. Slight drainage. No previous issues. No nausea vomiting urinary changes no diarrhea. No headaches no visual symptoms no chest pain Patient has a history of hypertension which with her weight loss has been well-controlled with just hydrochlorothiazide. In fact sometimes she is off her medicine has no other changes. No other major medical issues [facility] Medical History Kidney stones Social History household members: friend(s) alcohol intake: current Meds Home Medications and Allergies Home Medications ?Medication ?Instructions ?Recorded ?Confirmed ?Type peg 3350-electrolytes 236 240 ml PO Q10M #4,000 mL 05/10/22 Rx gram-22.74 gram-6.74 gram-5.86 gram solution (Golytely) hydrochlorothiazide 12.5 mg tablet tab 05/17/22 History Allergies Allergy/AdvReac Type Severity Reaction Status Date / Time morphine Allergy Intermediate ITCHY, Verified 05/17/22 08:03 HIVES Review of Systems Review of Systems Narrative: No other significant change except as above Exam Vital Signs (past 8 hours): - 07/01/25 17:10 Temperature 98.0 F Pulse Rate 96 H Respiratory Rate 15 Blood Pressure 165/91 H Pulse Oximetry 99 Oxygen Flow Rate 0 Oxygen Flow Rate 0 Narrative Exam Narrative: Alert female in no acute distress Lungs are clear heart is regular rate and rhythm right arm shows no axillary adenopathy she is moderate tenderness throughout the forearm with erythema and warmth she is got marked tenderness over the thenar eminence with swelling going back into the hand with erythema she has a tear wound with Steri-Strips which were removed there might be some slight clear discharge there is nothing definitive markedly tender to palpation. Moderately swollen. Good capillary refill. Left 5th finger with a bandage. Objective Labs 07/01/25 17:50 07/01/25 17:50 Labs: Laboratory Results - last 24 hr 07/01/25 17:50 WBC 6.8 RBC 4.18 Hgb 12.8 Hct 38.3 MCV 91.4 MCH 30.5 MCHC 33.4 RDW 13.1 Plt Count 250 Neut % (Auto) 73.0 Lymph % (Auto) 18.1 L [place] % (Auto) 6.7 Eos % (Auto) 1.2 L Baso % (Auto) 1.0 Neut # (Auto) 4900 Lymph # (Auto) 1200 [place] # (Auto) 500 Eos # (Auto) 100 Baso # (Auto) 100 Sodium 140 Potassium 4.2 Chloride 105 Carbon Dioxide 28 BUN 20 H Creatinine 0.70 Estimated GFR > 60 BUN/Creatinine Ratio 28.6 H Glucose 92 Calcium 9.5 Assessment & Plan Assessment & Plan narrative: Right arm cellulitis possible abscess and hand. Worsening despite outpatient therapy. Needs IV therapy. Will start with vancomycin. Whether or not we need better Gram-negative coverage we will see how things go. More likely a Gram-positive. But we will see. Culture the wound and blood cultures. CBC is not significantly elevated. Re-evaluate in a.m.. Discussed with orthopedic consult will obtain MRI to make sure or define whether abscesses required drainage and was consulted will have him evaluate and see what he recommends otherwise. Will see tomorrow. Discussed with the patient she understands pain control with both IV Dilaudid and oxycodone. Hypertension. Elevated today but has been good will follow. May need some type of treatment would consider beta-adiel since his probably more and adrenergic in cause. But will see how things go. Code status full. GI prophylaxis not required Disposition. Will at least be 48 hours will just have to see how she responds and what is required. If drainage is required probably will be quicker. Time-Based Coding :: [TOTAL MINUTES] spent with patient and on the chart (including review of chart, obtaining history, exam, reviewing outside data, placing orders, documenting exam and treatment plan, and counseling patient) on [DATE].
[2025-07-01 18:44] VITALS: BMI 22.2
[2025-07-01] MEDS: ACETAMINOPHEN 325 MG TABLET 650 MG PO ×2 (18:49→23:27)
[2025-07-01 19:00] VITALS: O2SAT 98
[2025-07-01 19:15] VITALS: BP 139/77; PULSE 73; RESP 20; TEMP 36.9; O2SAT 100
[2025-07-01] MEDS: DOCUSATE 100 MG CAPSULE PO (20:58)
[2025-07-01] MEDS: diphenhydrAMINE 50 MG/ML VIAL IV (23:27)
[2025-07-02] VITALS (11 sets, daily range): BP systolic 111–160; BP diastolic 57–96; PULSE 56–100; RESP 14–21; TEMP 36.4–37; O2SAT 97–100; BMI 22.2
[2025-07-02] MEDS: ACETAMINOPHEN 325 MG TABLET 650 MG PO ×2 (05:36→11:57)
[2025-07-02] MEDS: VANCOMYCIN 1,000 MG/200 ML PIGGYBACK 200 MG IV ×2 (05:42→19:14)
[2025-07-02 06:51] LABS: Add Manual Diff / Slide Review NO; Hematocrit 34.2 % (36-46); Hemoglobin 11.7 g/dL (12.0-16.0); Lymphocytes Absolute Auto 1500 /uL (1100-4500); Mean Corpuscular HGB Conc 34.2 % (30-36); Mean Corpuscular Hemoglobin 31.1 PG (26-34); Mean Corpuscular Volume 90.9 fL (80-100); Platelet Count 212 X10^3/uL (150-400)
[2025-07-02] MEDS: DOCUSATE 100 MG CAPSULE PO ×2 (08:09→22:37)
--- NOTE | 2025-07-02 08:17 | PM.CN.IH.1 ---
History of Present Illness Consult details Date Patient Seen: 07/02/25 Time Patient Seen: 08:17 Chief complaint: Rt hand cellulitis/ abcess Reason for consult: Right hand infection Narrative: Shazia is a 59-year-old female who sustained an injury to her right hand while trail running on SundayJune 27. She sustained a laceration to the thenar eminence of the right hand. She began having some swelling couple of days later and was seen in an urgent care where they did a washout followed by closure with Dermabond and Steri-Strips. Subsequently, the swelling has worsened and she was seen yesterday and admitted for IV antibiotics with concern of potential worsening infection. She reports pain in the location of the thenar eminence and into the metacarpophalangeal region of the thumb. She denies any pain in the rest of the hand. Meds Home Medications and Allergies Home Medications ?Medication ?Instructions ?Recorded ?Confirmed ?Type atorvastatin 10 mg tablet 10 mg PO DAILY 07/01/25 07/01/25 History dutasteride 0.5 mg capsule 0.5 mg PO DAILY 07/01/25 07/01/25 History estradiol 0.01% (0.1 mg/gram) 1 appful vaginal .M, W, F 07/01/25 07/01/25 History vaginal cream Allergies Allergy/AdvReac Type Severity Reaction Status Date / Time morphine Allergy Intermediate ITCHY, Verified 05/17/22 08:03 HIVES latex AdvReac Intermediate Hives Verified 07/01/25 18:53 Exam Vital Signs (past 8 hours): - 07/02/25 08:00 07/02/25 08:13 Temperature 98.0 F Pulse Rate 66 Respiratory Rate 14 Blood Pressure 111/70 Pulse Oximetry 99 99 Oxygen Delivery Method Room Air Oxygen Flow Rate 0 0 Oxygen Delivery Method Room Air Oxygen Flow Rate 0 Narrative Exam Narrative: Right hand as a stellate type of laceration/avulsion in the thenar eminence region with a couple of skin flaps. There is no marked drainage today. Of the skin is slightly macerated. She has swelling in the thenar eminence as well as tenderness extending toward the metacarpophalangeal region of the thumb. There is some mild erythema. She has active flexion and extension of the thumb with some pain in the thenar eminence, but none extending proximally and distally. Distal sensation is intact. Objective Labs 07/02/25 06:40 07/01/25 17:50 Labs: Laboratory Results - last 24 hr 07/01/25 07/02/25 17:50 06:40 WBC 6.8 6.1 RBC 4.18 3.76 L Hgb 12.8 11.7 L Hct 38.3 34.2 L MCV 91.4 90.9 MCH 30.5 31.1 MCHC 33.4 34.2 RDW 13.1 13.0 Plt Count 250 212 Neut % (Auto) 73.0 64.2 Lymph % (Auto) 18.1 L 24.2 L [place] % (Auto) 6.7 8.6 Eos % (Auto) 1.2 L 2.1 Baso % (Auto) 1.0 0.9 Neut # (Auto) 4900 3900 Lymph # (Auto) 1200 1500 [place] # (Auto) 500 500 Eos # (Auto) 100 100 Baso # (Auto) 100 100 Sodium 140 Potassium 4.2 Chloride 105 Carbon Dioxide 28 BUN 20 H Creatinine 0.70 Estimated GFR > 60 BUN/Creatinine Ratio 28.6 H Glucose 92 Calcium 9.5 [facility] Medical History Kidney stones Social History household members: significant other Tobacco & Substance Use Smoking Status: Never smoker alcohol intake: current Assessment & Plan Assessment & Plan narrative: Right hand laceration with subsequent infection. It is difficult to tell if there is drainage abscess and this time. MRIs pending later this afternoon. If a drainable abscess is present, I would plan to go through the operating room for I&D. If no abscess is present then I would recommend continued IV antibiotics and observation. She is to be NPO until the MRI is complete and we can determine if surgery is necessary. Time-Based Coding :: [TOTAL MINUTES] spent with patient and on the chart (including review of chart, obtaining history, exam, reviewing outside data, placing orders, documenting exam and treatment plan, and counseling patient) on [DATE]. PROFEE Charge Codes Inpatient or Observation consultation: [id number]
--- NOTE | 2025-07-02 08:36 | DI.MRI.S_ITS ---
PROCEDURE: MR HAND LT WO/W CON INDICATIONS: hand abcess TECHNIQUE: Noncontrast coronal T1 spin echo and T2 fast spin echo with fat saturation, axial proton density fast spin echo and T2 fast spin echo with fat saturation, axial T1 spin echo with fat saturation, sagittal T1 spin echo and STIR through the hand and fingers. Post-contrast axial, coronal, and sagittal T1 spin echo through the hand and fingers. COMPARISON: None. FINDINGS: Image quality: Excellent. Bones: Mild subchondral cystic changes about the scapholunate interval, favoring reactive. Multiple small ganglion cyst volar to the distal radius. No osteomyelitis. No significant degenerative changes. Interphalangeal joint(s): The accessory and proper collateral ligaments appear intact. The volar plate demonstrates normal morphology. The extensor central slips appear intact on sagittal images. Metacarpophalangeal joint(s): The accessory and proper collateral ligaments appear intact, as well as the volar plate and adjacent deep transverse metacarpal ligaments. The sagittal bands of the extensor ramos appear normal. Extensor apparatus: The central slips insert normally on the middle phalangeal base. The conjoint and terminal tendons insert normally on the distal phalangeal bases. More proximal portions of the extensor tendons also appear normal. Flexor apparatus: The flexor digitorum superficialis and profundus tendons both appear intact. All annular and cruciform pulleys appear intact, without adjacent soft tissue edema. Soft tissues: Diffuse subcutaneous edema of the dorsal and volar hand. Small soft tissue ulceration volar to the thenar eminence, with small locule of air within the thenar of eminence musculature. Diffuse muscle edema of the muscles at the thenar eminence, with likely partial-thickness muscle tear and small amount of free fluid. No drainable fluid collection. IMPRESSION: 1. Small soft tissue ulceration volar to the thenar eminence with diffuse muscle edema and partial-thickness muscle tear , and small amount of fluid within the thenar musculature No drainable fluid collection. 2. No osteomyelitis. Dictated by: Linda Abreu M.D. on 07/02/2025 at 17:01 Approved by: Linda Abreu M.D. on 07/02/2025 at 17:15
--- NOTE | 2025-07-02 09:26 | P.PN_ITS ---
Subjective Subjective Interval history: Shazia angelo is a 59-year-old female admitted to the hospital for right hand skin infection. She was on a trail run on Sunday when she fell on some rocks and caught her fall on her hands. She had a abrasion to her right thenar eminence with debris. She flushed it out at home, 2 days later she noticed some swelling in the wrist so she went to urgent care where they cleaned it up further. They did Dermabond the skin and and Steri-Strips. She was seen in clinic this week with some worsening swelling and warmth. Antibiotics were started. She then returned to clinic 2 days later with increased swelling and redness and a report of a low- grade fever. She was then admitted for IV antibiotics and MRI with possible incision and drainage under anesthesia. This morning she has in no acute distress. Did not sleep very well. Her pain is a 4/10 she is taking oxycodone and Tylenol as needed. Range motion is limited. She is wondering about some MiraLax because she is constipated. Would like to take a shower. Exam Vital Signs (past 8 hours): - 07/02/25 08:00 07/02/25 08:13 Temperature 98.0 F Pulse Rate 66 Respiratory Rate 14 Blood Pressure 111/70 Pulse Oximetry 99 99 Oxygen Delivery Method Room Air Oxygen Flow Rate 0 0 Oxygen Delivery Method Room Air Oxygen Flow Rate 0 Const General: cooperative and comfortable Orientation: alert, awake and oriented x3 HENMT Head: normal to inspection Eyes General: appearance normal, both eyes and all related structures Neck Neck: normal visual inspection Chest Chest: normal inspection of the chest Resp Effort & Inspection: normal respiratory effort Auscultation: clear to auscultation bilaterally Cardio Rate: regular rate Rhythm: regular rhythm Heart Sounds: S1 normal and S2 normal Pulses: brachial pulses present and radial pulses present GI Inspection: normal to inspection Palpation: soft and no hepatosplenomegaly Percussion: normal to percussion Skin Rashes: no rashes Trauma: abrasion Other: 4 cm abrasion of the right thenar eminence with marked tenderness and some clear and bloody exudate. Swelling of the wrist and all digits, swelling of the arm to mid forearm. Redness over the palmar and dorsal surfaces the hand some redness of the right forearm. Warmth in the same distribution. No axillary lymphadenopathy. Pulses present. Objective Labs 07/02/25 06:40 07/01/25 17:50 Labs: Laboratory Results - last 24 hr 07/01/25 07/02/25 17:50 06:40 WBC 6.8 6.1 RBC 4.18 3.76 L Hgb 12.8 11.7 L Hct 38.3 34.2 L MCV 91.4 90.9 MCH 30.5 31.1 MCHC 33.4 34.2 RDW 13.1 13.0 Plt Count 250 212 Neut % (Auto) 73.0 64.2 Lymph % (Auto) 18.1 L 24.2 L [place] % (Auto) 6.7 8.6 Eos % (Auto) 1.2 L 2.1 Baso % (Auto) 1.0 0.9 Neut # (Auto) 4900 3900 Lymph # (Auto) 1200 1500 [place] # (Auto) 500 500 Eos # (Auto) 100 100 Baso # (Auto) 100 100 Sodium 140 Potassium 4.2 Chloride 105 Carbon Dioxide 28 BUN 20 H Creatinine 0.70 Estimated GFR > 60 BUN/Creatinine Ratio 28.6 H Glucose 92 Calcium 9.5 PFSH Medical History Kidney stones Social History household members: significant other Smoking Status: Never smoker alcohol intake: current Assessment & Plan Assessment & Plan narrative: #Right arm cellulitis with possible abscess Worsening despite outpatient antibiotics. Started on IV vancomycin yesterday with no significant clinical improvement today. Cultures pending. White blood cell reassuring at 6.1. MRI this afternoon to determine whether there is an abscess that requires drainage. Orthopedics consulted and have seen her. She is NPO before her MRI. Pain control with IV Dilaudid and oxycodone and Tylenol. We will consider antibiotic adjustment after MRI and possible procedure today. #Hypertension. Well-controlled with hydrochlorothiazide. 111/70 this morning. Code status full. GI prophylaxis -patient requested MiraLax. Will initiate after today's procedure. DVT prophylaxis: Lovenox. Disposition. Will at least be 48 hours will just have to see how she responds and what is required. If drainage is required probably will be quicker. Time-Based Coding :: [TOTAL MINUTES] spent with patient and on the chart (including review of chart, obtaining history, exam, reviewing outside data, placing orders, documenting exam and treatment plan, and counseling patient) on [DATE].
--- NOTE | 2025-07-02 12:31 | CM.DANOTE ---
Initial DCP Assessment Visit Note Reviewed EMR and team rounds for pt's medical status and updates. Met with pt and her Life Partner to introduce self and role. Pt was found to be alert/oriented, in good spirits, ambulating around the room. She lives independently with her Life Partner in their own home here in [place]. Her partner will also transport her home when she is medically cleared for home d/c. She declines any CM d/c assistance or resource needs at this time. Payor: [facility] PCP: Dr. Collado Pt is a 59 year-old F who was directly admitted by Dr. Collado for a worsening R-hand infection for the last 4-days. She had fallen on Sunday and cut her hand open while running in the [employer]. Ortho was consulted, and they ordered an MRI in order to further evaluate if pt has an underlying abcess that would possibly need to be irrigated and drained in the OR. MRI is pending. Plan was made to admit pt for further IV antibiotic tx and completion of the MRI, scheduled for today. Anticipate 1-2 days before she's medically stable for d/c. DCP will continue to monitor and assist with any further evolving needs prior to her d/c. Discharge Planning/Care Management CM Discharge Assessment Start: 07/01/25 17:21 Freq: Status: Active Protocol: Document 07/02/25 12:29 DPL (Rec: 07/02/25 12:31 DPL [id number]) Discharge Planning Assessment Assigned Discharge FELIBERTO Balderas Apprentice Stylist Advance Directives? No History Provided By Patient,Medical Record Has Patient been No admitted in last 30 days? Prior Living House Arrangements Household Members significant other Type of Drives own vehicle transporation used prior to admit Independent with ADL Yes 's Is patient alert and Yes oriented? Caregiver for No Another Comment N/A Comment N/A Comment No identified home d/c needs at this time. Barriers to No Discharge Discharge Plan Home Transportation Life Partner Arrangement Referrals Initiated None needed Whiteboard Updated Yes in Patient Room with name and ext. # of Cutter And Edge Trimmer Review Status In Process Please Provide Date 07/02/25 Initial DC Assessment Was Performed
--- NOTE | 2025-07-02 19:02 | SUR.OPER ---
Supine on padded OR bed, head on pillow, arms secured on padded arm boards at <90 degrees abduction, right arm on arm table, legs uncrossed, safety belt at thigh, tape over blanket over lower legs. Portioning confirmed by surgeon
--- NOTE | 2025-07-02 19:48 | P.OP_ITS ---
Operative Date/Time/Diagnoses Date of procedure: 07/02/25 Time of procedure: 19:51 Pre-op diagnosis: Right hand infection secondary to penetrating trauma and potential retained foreign body Post-op diagnosis: same Procedure & Clinicians Procedure: Wound exploration with irrigation and debridement, right hand (CPT - 51204) Foreign body removal, right-hand Same procedure(s) as scheduled: Yes Indications: Deep hand infection secondary to penetrating trauma and suspected retained foreign body Surgeon: Rodrigo Monson Correctional Officer Sergeant: Nancy Hennessy Click Yes if Unassisted: No Anesthesia Type: General Operative Notes Findings: Small amount of purulent material immediately found upon opening the wound. Deep penetrating wound in right thenar eminence extending down to the metacarpal and undermining the subcutaneous tissues. Several small pieces of foreign debris were found and removed. Closure Type: non-primary Specimen(s): other Applied: other (Iodoform packing) Estimated Blood Loss (mL): 5 Blood products transfused: none Tourniquet time (min): 0 Procedure in detail: Diagnosis and management options were discussed with the patient. Given her penetrating trauma and subsequent worsening pain, erythema, and swelling along with the MRI findings concerning for potential retained foreign material tracking down to the level of the metacarpal, recommendation was made to proceed with wound exploration with irrigation debridement and foreign body removal. Risks and benefits were discussed with the patient including, but were not limited to: Bleeding, infection, drug reactions, neurovascular injury, incomplete pain relief, stiffness, and . Patient voiced understanding acceptance of the risks. She was agreeable with moving forward with planned procedure. Patient was seen in the holding area and the surgical extremity was marked. She was then taken to the operating room placed on the operating table in a supine position. General anesthesia was then induced and the airway was secured. A tourniquet was placed around the proximal right upper extremity. The extremity was then prepped and draped in the usual sterile fashion. The wound was noticed to have a small amount of purulent material at the aperture. A pair of hemostats was used to open the wound and a culture swab was immediately introduced to obtain culture. The extent of the wound was then pro bed with a hemostat. A curette was then used to debride the wound margins including some skin, subcutaneous tissue, and muscle. Several small pieces of foreign material were retrieved. The wound was approximately 1 cm in length. Given the limited access with a larger cavity deep, the wound was sharply extended proximally to allow greater access deeply. The extended wound was carefully inspected visually under loupe magnification. All foreign material was removed as could be found. The wound was then irrigated with a total of 3 L of irrigation solution under low pressure. The incised portion of the wound was then loosely closed with a single 4-0 nylon horizontal mattress suture. The wound was packed with iodoform gauze to help maintain a tract to allow for drainage. A soft dressing was then applied. General anesthesia was reversed successfully and patient was taken to the recovery room in stable condition. There were no complications during the case. Complications: none Post-operative Condition: stable Disposition: PACU Plan for aftercare: She will return to the [facility] where she will continue to receive IV antibiotics. We will watch the cultures for results, and monitor her clinical progression.
[2025-07-02] MEDS: ONDANSETRON 4 MG/2 ML INJ IV ×2 (19:49→22:37)
[2025-07-02] MEDS: fentaNYL 100 MCG/2 ML INJ 50 MCG IV ×2 (20:03→20:13)
[2025-07-03 03:33] VITALS: BP 112/64; PULSE 60; RESP 16; O2SAT 98
[2025-07-03 03:40] LABS: CRP, High Sensitivity 3.42 mg/L (0.00-3.00)
[2025-07-03] MEDS: VANCOMYCIN TROUGH 1 REQUEST MISC (05:53)
[2025-07-03] MEDS: ACETAMINOPHEN 325 MG TABLET 650 MG PO ×4 (06:03→20:50)
[2025-07-03 06:08] LABS: Add Manual Diff / Slide Review NO; Hematocrit 36.5 % (36-46); Hemoglobin 12.8 g/dL (12.0-16.0); Lymphocytes Absolute Auto 800 /uL (1100-4500); Mean Corpuscular HGB Conc 35.0 % (30-36); Mean Corpuscular Hemoglobin 31.3 PG (26-34); Mean Corpuscular Volume 89.4 fL (80-100); Platelet Count 248 X10^3/uL (150-400)
[2025-07-03 06:20] LABS: Blood Urea Nitrogen 12 mg/dL (7-17); Calcium 9.3 mg/dL (8.4-10.2); Carbon Dioxide 25 mmol/L (22-32); Chloride 104 mmol/L (98-107); Estimated Glomerular Filt Rate > 60 mL/min (>60); Glucose 146 mg/dL (70-99); HEMOLYSIS < 15 (0-50); Potassium 4.2 mmol/L (3.4-5.1); Sodium 136 mmol/L (137-145)
[2025-07-03] MEDS: VANCOMYCIN 1,000 MG/200 ML PIGGYBACK 200 MG IV (06:37)
[2025-07-03 07:56] VITALS: O2SAT 98
[2025-07-03] MEDS: DOCUSATE 100 MG CAPSULE PO (08:19)
[2025-07-03] MEDS: ENOXAPARIN 40 MG/0.4 ML SYRINGE SUBCUT (08:22)
[2025-07-03 09:15] VITALS: BP 123/72; PULSE 70; RESP 19; TEMP 37; O2SAT 94
--- NOTE | 2025-07-03 09:33 | P.PN_ITS ---
Subjective Subjective Interval history: Shazia Vides is a 59-year-old female on hospital day 3 admitted for a right hand wound infection after fall. She was started on IV vancomycin 2 days ago. Yesterday she had an MRI that showed possible foreign body in the wound. Ortho did an incision and drainage with some debris taken out. Wound packed lightly. This morning she is in no acute distress. Her pain is improving she slept well she is feeling much better. She has not passed gas. Range of motion in the fingers has improved. Exam Vital Signs (past 8 hours): - 07/03/25 03:33 07/03/25 07:56 07/03/25 09:15 Temperature 98.6 F Pulse Rate 60 70 Respiratory Rate 16 19 Blood Pressure 112/64 123/72 Pulse Oximetry 98 98 94 Oxygen Delivery Method Room Air Oxygen Flow Rate 0 Oxygen Delivery Method Room Air Oxygen Flow Rate 0 Const General: cooperative and comfortable Orientation: alert, awake and oriented x3 HENMT Head: normal to inspection Eyes General: appearance normal, both eyes and all related structures Neck Neck: normal visual inspection Chest Chest: normal inspection of the chest Resp Effort & Inspection: normal respiratory effort Auscultation: clear to auscultation bilaterally Cardio Rate: regular rate Rhythm: regular rhythm Heart Sounds: S1 normal and S2 normal Pulses: brachial pulses present and radial pulses present GI Inspection: normal to inspection Palpation: soft and no hepatosplenomegaly Percussion: normal to percussion Skin Rashes: no rashes Trauma: abrasion Other: Swelling of the wrist and all digits, swelling of the arm to mid forearm. Reduced redness over the palmar and dorsal surfaces the hand and right forearm. No axillary lymphadenopathy. Pulses present. Objective Labs 07/03/25 05:55 07/03/25 05:55 Labs: Laboratory Results - last 24 hr 07/02/25 07/03/25 06:40 05:55 WBC 5.4 RBC 4.08 Hgb 12.8 Hct 36.5 MCV 89.4 MCH 31.3 MCHC 35.0 RDW 12.7 Plt Count 248 Neut % (Auto) 81.0 H Lymph % (Auto) 14.1 L [place] % (Auto) 4.1 Eos % (Auto) 0.0 L Baso % (Auto) 0.8 Neut # (Auto) 4400 Lymph # (Auto) 800 L [place] # (Auto) 200 Eos # (Auto) 0 Baso # (Auto) 0 Sodium 136 L Potassium 4.2 Chloride 104 Carbon Dioxide 25 BUN 12 Creatinine 0.70 Estimated GFR > 60 BUN/Creatinine Ratio 17.1 Glucose 146 H Calcium 9.3 C-React Prot High Sens 3.42 H Vancomycin Trough 8.5 L PFSH Medical History Kidney stones Social History household members: significant other Smoking Status: Never smoker alcohol intake: current Assessment & Plan Assessment & Plan narrative: #Right arm cellulitis #S/P incision and drainage Improved redness and pain. Still swollen. Continue IV vancomycin today consider switch to oral Bactrim or doxycycline tomorrow. White blood cell reassuring decreased to 5.4. Orthopedics to follow the wound. Pain control with ibuprofen and Tylenol and oxycodone as needed. #Hypertension. Well-controlled with hydrochlorothiazide. 112/64 this morning. Code status full. GI prophylaxis -not required. DVT prophylaxis: Lovenox. Disposition. If continued improved symptoms and swelling likely discharge tomorrow. Time-Based Coding :: [TOTAL MINUTES] spent with patient and on the chart (including review of chart, obtaining history, exam, reviewing outside data, placing orders, documenting exam and treatment plan, and counseling patient) on [DATE].
[2025-07-03] MEDS: IBUPROFEN 400 MG TABLET PO ×2 (11:17→17:51)
--- NOTE | 2025-07-03 11:59 | P.PN_ITS ---
Subjective Subjective Date Patient Seen: 07/03/25 Time Patient Seen: 11:59 Interval history: Patient reports some improvement in her pain since her surgery. She has no new complaints today. Exam Vital Signs (past 8 hours): - 07/03/25 07:56 07/03/25 09:15 Temperature 98.6 F Pulse Rate 70 Respiratory Rate 19 Blood Pressure 123/72 Pulse Oximetry 98 94 Oxygen Delivery Method Room Air Oxygen Flow Rate 0 Oxygen Delivery Method Room Air Oxygen Flow Rate 0 Narrative Exam Narrative: Right hand dressings are clean, dry, and intact. She has intact extension and flexion of all digits. Her thumb motion appears to be somewhat improved over her preop exam. Distal sensation is intact throughout. Objective Labs 07/03/25 05:55 07/03/25 05:55 Labs: Laboratory Results - last 24 hr 07/02/25 07/03/25 06:40 05:55 WBC 5.4 RBC 4.08 Hgb 12.8 Hct 36.5 MCV 89.4 MCH 31.3 MCHC 35.0 RDW 12.7 Plt Count 248 Neut % (Auto) 81.0 H Lymph % (Auto) 14.1 L [place] % (Auto) 4.1 Eos % (Auto) 0.0 L Baso % (Auto) 0.8 Neut # (Auto) 4400 Lymph # (Auto) [address] [place] # (Auto) 200 Eos # (Auto) 0 Baso # (Auto) 0 Sodium 136 L Potassium 4.2 Chloride 104 Carbon Dioxide 25 BUN 12 Creatinine 0.70 Estimated GFR > 60 BUN/Creatinine Ratio 17.1 Glucose 146 H Calcium 9.3 C-React Prot High Sens 3.42 H Vancomycin Trough 8.5 L PFSH Medical History Kidney stones Social History household members: significant other Smoking Status: Never smoker alcohol intake: current Assessment & Plan Assessment & Plan narrative: Hospital day 3, postop day 1 from irrigation debridement of right hand thenar eminence wound, showing clinical improvement. Patient is showing some clinical improvement in her symptoms and exam. Recommend continue antibiotic management. Follow cultures. We will plan on slowly removing the packing starting tomorrow. Encouraged her to keep the hand elevated and work on range of motion of the digits as much as she is comfortable. Time-Based Coding :: [TOTAL MINUTES] spent with patient and on the chart (including review of chart, obtaining history, exam, reviewing outside data, placing orders, documenting exam and treatment plan, and counseling patient) on [DATE]. PROFEE Sales Account Manager Document charge(s): Yes Charge Codes Subsequent inpatient/observation care: [id number]
[2025-07-03 19:00] VITALS: O2SAT 99
[2025-07-03 19:47] VITALS: BP 132/72; PULSE 66; RESP 16; TEMP 36.1; O2SAT 98
[2025-07-03] MEDS: DOXYCYCLINE HYCLATE 100 MG TABLET PO (20:50)
[2025-07-03] MEDS: diphenhydrAMINE 25 MG TABLET 50 MG PO (20:50)
--- NOTE | 2025-07-03 20:57 | PC.NURSE ---
Patient refused night time Colace administration, informing this RN that she had taken her own laxative that contains a stimulant. Patient reports taking 3 or 4 of tablets containing 100 mg Colace & 8.6 mg Senna. Patient informed of safety precautions and was asked to inform medical staff if she wishes to take her own medications. Informed patient of hospital policies and procedures as well as safety concerns. Patient verbally agreed.
[2025-07-04] MEDS: IBUPROFEN 400 MG TABLET PO ×3 (00:21→11:53)
[2025-07-04 06:05] LABS: Add Manual Diff / Slide Review NO; Hematocrit 32.4 % (36-46); Hemoglobin 11.4 g/dL (12.0-16.0); Lymphocytes Absolute Auto 2200 /uL (1100-4500); Mean Corpuscular HGB Conc 35.2 % (30-36); Mean Corpuscular Hemoglobin 31.8 PG (26-34); Mean Corpuscular Volume 90.2 fL (80-100); Platelet Count 201 X10^3/uL (150-400)
[2025-07-04 06:14] LABS: Blood Urea Nitrogen 16 mg/dL (7-17); Calcium 8.9 mg/dL (8.4-10.2); Carbon Dioxide 25 mmol/L (22-32); Chloride 107 mmol/L (98-107); Estimated Glomerular Filt Rate > 60 mL/min (>60); Glucose 92 mg/dL (70-99); HEMOLYSIS < 15 (0-50); Potassium 4.0 mmol/L (3.4-5.1); Sodium 138 mmol/L (137-145)
[2025-07-04 08:00] VITALS: BP 111/68; PULSE 62; RESP 17; TEMP 36.4; O2SAT 99
[2025-07-04] MEDS: DOXYCYCLINE HYCLATE 100 MG TABLET PO (09:02)
[2025-07-04] MEDS: ACETAMINOPHEN 325 MG TABLET 650 MG PO (09:04)
--- NOTE | 2025-07-04 11:31 | P.DS_ITS ---
History of Present Illness History of Present Illness Date Patient Seen: 07/04/25 Time Patient Seen: 11:31 Date of Onset of Symptoms: 06/28/25 Chief complaint: Rt hand cellulitis/ abcess Narrative: Patient is a 59-year-old female well known to me who presents for pain swelling in her left arm. Apparently on Sunday she was out in the [place] running and fell landing on her right arm tearing open her thenar eminence she cleaned it and felt like things were going okay Sunday she had it looked at the urgent care they irrigated it cleaned it aggressively closed it with glue and Steri- Strips. She started having more pain on Sunday when she presented to her office she had swelling and redness on her arm she had no fevers or other changes. She was placed on Augmentin and really nothing to culture at that time. She was seen today because of increasing swelling and redness going or upper arm. Feels like she has a fever. Increasing pain. Slight drainage. No previous issues. No nausea vomiting urinary changes no diarrhea. No headaches no visual symptoms no chest pain Patient has a history of hypertension which with her weight loss has been well- controlled with just hydrochlorothiazide. In fact sometimes she is off her medicine has no other changes. No other major medical issues Discharge Providers Provider Date of admission: 07/01/25 16:43 Discharge Date: 07/04/25 Primary care physician: Dayton Collado MD Consults: 07/01/25 17:34 Consult to Orthopedic Surgery Routine Comment: Consulting Provider: [facility] Reason for consultation: rt hand abcess Has provider been notified: Yes 07/01/25 17:35 Consult to Physician Routine Comment: Consulting Provider: Rodrigo Monson Reason for consultation: cellulitis abcess Has provider been notified: Yes Discharge provider: Dayton Collado MD Summary Hospital Course Discharge Diagnosis: Right arm cellulitis including hand with foreign body Hypertension. Well-controlled. Off medication. Anemia Hospital Course: Right arm cellulitis. Patient was admitted from clinic. Orthopedic was consulted. Concern was for abscess. Patient had marked thenar eminence swelling and redness going up her arm. MRI was requested by orthopedist and ordered. No definitive abscess was noted in the hand but there was question of foreign body. On day 2 patient was taken to the operative theater by orthopedist and foreign bodies were removed. No definitive abscess. Cultures of the hand grew staph aureus. Sensitive to Keflex. Blood cultures did not grow anything white count was pretty stable. Was started on Ancef and developed immediate rash. Was discontinued and doxycycline was started p.o.. This was last night. Today she is much better. Less pain. Less swelling. Less erythema. Doing well. Will be discharged to home on doxycycline p.o.. Will follow up with me on Sunday. Orthopedist to set up wound care. Anemia. Patient with mild anemia during her presentation. I believe this is all delusional. There was no evidence of other issues. We will follow as outpatient. Hypertension. Initially hypertensive but otherwise has been off her medicine and is doing well. Blood pressures at home have been good. They improved while she was here and no further follow-up with medications as needed at this time. Will follow-up in 6 months as previously set up Exam Vital Signs (past 8 hours): - 07/04/25 08:00 Temperature 97.5 F L Pulse Rate 62 Respiratory Rate 17 Blood Pressure 111/68 Pulse Oximetry 99 Oxygen Delivery Method Room Air Oxygen Flow Rate 0 Narrative Exam Narrative: Alert female in no acute distress Lungs are clear. Heart is regular rate and rhythm. Right arm shows decreased swelling in the forearm with resolution of forearm erythema and swelling. Hand still somewhat swelling but in a dressing Objective Labs 07/04/25 05:34 07/04/25 05:34 Labs: Laboratory Results - last 24 hr 07/04/25 05:34 WBC 5.3 RBC 3.59 L Hgb 11.4 L Hct 32.4 L MCV 90.2 MCH 31.8 MCHC 35.2 RDW 12.8 Plt Count 201 Neut % (Auto) 44.3 L D Lymph % (Auto) 42.6 H D [place] % (Auto) 8.2 Eos % (Auto) 3.9 Baso % (Auto) 1.0 Neut # (Auto) 2300 Lymph # (Auto) 2200 [place] # (Auto) 400 Eos # (Auto) 200 Baso # (Auto) 100 Sodium 138 Potassium 4.0 Chloride 107 Carbon Dioxide 25 BUN 16 Creatinine 0.68 Estimated GFR > 60 BUN/Creatinine Ratio 23.5 H Glucose 92 Calcium 8.9 [facility] Medical History Kidney stones Social History household members: significant other Smoking Status: Never smoker alcohol intake: current Discharge Assessment & Plan Assessment and Plan Assessment: Improved Plan of Treatment: Discharge home Discharge Plan Discharge Plan Patient Disposition: Home Provider Discharge Comment: Discharge after orthopedic evaluation and planned for wound care Discharge orders & Medications Prescriptions: New doxycycline hyclate 100 mg Tablet 100 mg PO BID Qty: 20 0RF Continued atorvastatin 10 mg tablet 10 mg PO DAILY estradiol 0.01 % (0.1 mg/gram) cream 1 appful vaginal .M, W, F dutasteride 0.5 mg capsule 0.5 mg PO DAILY Follow up/Referrals: Dayton Collado MD [Primary Care Provider, [facility]] - 07/08/25 Referral Note: Patient to call Sunday for appointment Discharge Health Status Multidrug resistant organism: No MDRO Diet/Activity/Treatments Diet: Diet as Tolerated Activity: As tolerated Skin/Wound/Dressing Care Report to your healthcare provider any signs of infection, such as:: chills, fever, night sweats, increased pain, unusual drainage and unusual redness Visit Report/Discharge Packet Stand Alone Forms: Patient Portal/API, Stroke Signs & Symptoms Discharge Data Primary Care Provider: Dayton Collado
--- NOTE | 2025-07-04 11:48 | CM.DPNOTE ---
DC Note Patient is discharging home today. Patient discussed in multidisciplinary rounds- No needs anticipated from this social director. Will plan to remain available for discharge coordination in case this changes. JW
--- NOTE | 2025-07-04 12:27 | P.PN_ITS ---
Subjective Subjective Date Patient Seen: 07/04/25 Time Patient Seen: 12:27 Interval history: Patient reports continued improvement in pain. She has no new complaints. Exam Vital Signs (past 8 hours): - 07/04/25 08:00 Temperature 97.5 F L Pulse Rate 62 Respiratory Rate 17 Blood Pressure 111/68 Pulse Oximetry 99 Oxygen Delivery Method Room Air Oxygen Flow Rate 0 Narrative Exam Narrative: Right hand dressing is removed. There is some bloody drainage on the dressing as anticipated. Swelling appears diminished compared to preoperative exam and erythema is also markedly improved. Distal motor and sensory exams are intact Objective Labs 07/04/25 05:34 07/04/25 05:34 Labs: Laboratory Results - last 24 hr 07/04/25 05:34 WBC 5.3 RBC 3.59 L Hgb 11.4 L Hct 32.4 L MCV 90.2 MCH 31.8 MCHC 35.2 RDW 12.8 Plt Count 201 Neut % (Auto) 44.3 L D Lymph % (Auto) 42.6 H D [place] % (Auto) 8.2 Eos % (Auto) 3.9 Baso % (Auto) 1.0 Neut # (Auto) 2300 Lymph # (Auto) 2200 [place] # (Auto) 400 Eos # (Auto) 200 Baso # (Auto) 100 Sodium 138 Potassium 4.0 Chloride 107 Carbon Dioxide 25 BUN 16 Creatinine 0.68 Estimated GFR > 60 BUN/Creatinine Ratio 23.5 H Glucose 92 Calcium 8.9 PFSH Medical History Kidney stones Social History household members: significant other Smoking Status: Never smoker alcohol intake: current Assessment & Plan Assessment & Plan narrative: Hospital day 4., postop day 2. From incision, drainage, and debridement of right hand wound. Patient is making good progress with antibiotics following the I and D. several cm of packing were removed today at bedside. I think it is reasonable for her to return home at this time on oral antibiotics. She should follow up in the Orthopedic Clinic on Sunday to have the packing removed. I would like her to contact them 1st thing Sunday morning to schedule that visit. Time-Based Coding :: [TOTAL MINUTES] spent with patient and on the chart (including review of chart, obtaining history, exam, reviewing outside data, placing orders, documenting exam and treatment plan, and counseling patient) on [DATE]. PROFEE Speech Language Pathologist Document charge(s): Yes Charge Codes Subsequent inpatient/observation care: [id number]
--- NOTE | 2025-07-04 14:09 | PC.NURSE ---
Dr Monson saw patient and changed dressing to right hand. States she should change the gauze dressing and place emily wrap over daily, and follow up in the office on Sunday for packing removal/wound check. Discharge instructions reviewed with patient, she has no further questions or concerns at this time. Patient picked up by her significant other, escorted out with all her belongings via wheelchair to discharge to home.
== END 2025-07-04 13:23 | disposition home or self-care (01) | DRG 983 ==
PROVIDERS: Orthopaedic Surgery; Admitting Provider Family Medicine; Family Provider Family Medicine; PCP Family Medicine; Referring Provider Family Medicine; Visit Provider Family Medicine
PROC: 0KBC0ZZ Excision of Right Hand Muscle, Open Approach (ICD-10-PCS; principal; 2025-07-02 18:30)
DX: L03.113 Cellulitis of right upper limb (principal); I10 Essential (primary) hypertension; K59.00 Constipation, unspecified; S61.421A Laceration with foreign body of right hand, initial encounter; B95.61 Methicillin susceptible Staphylococcus aureus infection as the cause of diseases classified elsewhere; W18.30XA Fall on same level, unspecified, initial encounter; Y93.02 Activity, running
CPT/HCPCS: 11043; 36415; 73220; 80048; 80202; 85025; 86140; 87040; 87070; 87075; 87077; 87147; 87186; 87205; 99232; G0379; J0689; J1100; J1171; J1200; J1650; J1885; J2405; J2704; J3010; J3375